=== PATIENT | female | born 1945 | race Two or more races ===

== ENCOUNTER → 2016-07-23 | Outpatient (CLI) | payer MEDICARE, OTHER ==
--- NOTE | 2016-07-23 16:41 | RADRPT ---
PROCEDURE: Bilateral knee x-ray CLINICAL INDICATION: PAIN TECHNIQUE: AP and sunrise views of bilateral knees as well as a lateral view of each knee were obt ained. COMPARISON: None FINDINGS: There is normal osseous mineralization. There is no acute fracture. Soft tissue structures are unremarkable. There is moderate joint space narrowing of the medial compartment. Mild spurring is noted at the coleman perior pole of the patella. There are severe degenerative changes of the medial compartment of the left knee joint including merna nt space narrowing, small osteophytes, and subchondral sclerosis. RPTAT: AA IMPRESSION: Severe degenerative changes of the left knee joint, as above. Moderate degenerative changes of the right knee joint, as above. Physician Lucy Date Time Electronically viewed and signed by Angel Thompson Physician on 07/23/2016 16:41 RA/
== END | disposition home or self-care (01) ==
LOC: HKI 15:57
PROVIDERS: ATTEND Orthopaedic Surgery
DX: M17.12 Unilateral primary osteoarthritis, left knee (principal); M25.562 Pain in left knee
CPT/HCPCS: G0463